=== PATIENT | male | born 1990 | race African-American/Black ===

== ENCOUNTER 2023-10-03 12:23 | Emergency (ER) | payer MEDICAID ==
[~2023-10-03] VITALS: Ht 182.9 cm; Wt 100.0 kg
[2023-10-03 12:39] VITALS: TEMP 98.9; O2SAT 99
[2023-10-03] MEDS: AMOXICILLIN/POTASSIUM CLAVULANATE 875/125MG TAB PO ONE (13:30)
[2023-10-03] MEDS ORDERED: ACET-2708 MT (13:32)
[2023-10-03] MEDS ORDERED: NAPR-679 MT (13:32)
[2023-10-03] MEDS ORDERED: SULF1TAB48 MT (13:32)
[2023-10-03] MEDS ORDERED: AMOX1TAB16 MT (13:32)
[2023-10-03 13:56] VITALS: BP 152/116; PULSE 74; RESP 18
[2023-10-03] MEDS: SULFAMETHOXAZOLE/TRIMETHOPRIM 800/160MG TABLET PO ONE (13:56)
[2023-10-03] MEDS: KETOROLAC 30MG/ML VIAL IM ONE (13:56)
[2023-10-03] MEDS: HYDROCODONE/ACETAMINOPHEN 5/325MG TABLET PO ONE (13:56)
== END 2023-10-03 14:08 | disposition home or self-care (01) ==
LOC: ER 12:33
DX: K04.7 Periapical abscess without sinus (principal)
CPT/HCPCS: 99284; 96372; J1885

== ENCOUNTER 2024-12-03 22:16 | Emergency (ER) | payer OTHER ==
[~2024-12-03] VITALS: Ht 185.4 cm; Wt 125.4 kg
[~2024-12-03 22:16] MED LIST: ACET-2708 MT; AMOX1TAB16 MT; NAPR-679 MT; SULF1TAB48 MT
[2024-12-03 22:18] VITALS: O2SAT 97
[2024-12-03 22:21] VITALS: BP 155/94; TEMP 36.8
[2024-12-03 23:16] VITALS: PULSE 90; RESP 16; O2SAT 99
[2024-12-03] MEDS: IPRATROPIUM/ALBUTEROL 0.5-3(2.5)MG/3ML NEB HHN ONE (23:16)
[2024-12-03] MEDS: PREDNISONE 20MG TABLET PO ONE (23:21)
[2024-12-03 23:47] LABS: BASOPHILS % 0.4 % (0.0-2.0); EOSINOPHILS % 1.6 % (0.0-5.0); HEMATOCRIT. 41.0 % (42.0-52.0); HEMOGLOBIN. 13.7 g/dL (14.0-18.0); LYMPHOCYTES % 35.6 % (20.0-50.0); MEAN PLATELET VOLUME 8.0 fl (7.4-10.4); MONOCYTES % 8.0 % (2.0-8.0); NEUTROPHILS % 54.4 % (40.0-76.0); PLATELET 256 x1000/uL (130-400); RED BLOOD CELL COUNT 4.76 mill/uL (4.7-6.1); RED CELL DISTRIBUTION WIDTH 13.2 % (11.6-14.6)
[2024-12-04] LABS: CREATININE 1.2 mg/dL (0.6-1.3); UREA NITROGEN BLOOD 8 mg/dL (9-23)
[2024-12-04 00:01] LABS: TROPONIN I HIGH SENSITIVITY 13 ng/L (3.0-53)
== END 2024-12-04 00:54 | disposition left against medical advice (07) ==
LOC: ER 22:16
DX: R06.02 Shortness of breath (principal); J45.909 Unspecified asthma, uncomplicated; Z79.52 Long term (current) use of systemic steroids; Z79.1 Long term (current) use of non-steroidal anti-inflammatories (NSAID); Z79.899 Other long term (current) drug therapy
CPT/HCPCS: 80048; 85025; 84484; 36415; 71045; 94640; 93005; 98960; 99285; J7512; Z7610 ×3; 94070; 94664